=== PATIENT | female | born 1965 | race Two or more races ===

== ENCOUNTER 2016-10-09 11:52 | Emergency (ER) | payer OTHER ==
[2016-10-09] MEDS ORDERED: ACETAMINOPHEN 325 MG TAB PO ONE (12:41)
--- NOTE | 2016-10-09 12:46 | EDPHY ---
H & P Stated Complaint: LARYNGITIS, SORE THROAT Time Seen by Provider: 10/09/16 12:10 HPI/ROS: CHIEF COMPLAINT: Sore throat and upper chest burning HISTORY OF PRESENT ILLNESS: This is a healthy immunocompetent 51-year-old female who presents with almost 3 days of high substernal chest burning, sore throat, laryngitis, headache, myalgias, fever, cough, and facial pain. Her cough has been productive. She has also had sinus drainage down the back of her throat. She did have a flu shot this year. She does not feel short of breath. REVIEW OF SYSTEMS: A ten point review of systems was performed and is negative with the exception of the items mentioned in the HPI. Source: Patient Exam Limitations: No limitations - Personal History LMP (Females 10-55): 8-14 Days Ago Current Tetanus Diphtheria and Acellular Pertussis (TDAP): Yes Tetanus Vaccine Date: within 10 yrs - Medical/Surgical History Hx Asthma: No Hx Chronic Respiratory Disease: No Hx Diabetes: No Hx Cardiac Disease: No Hx Renal Disease: No Hx Cirrhosis: No Hx Alcoholism: No Hx HIV/AIDS: No Hx Splenectomy or Spleen Trauma: No Other PMH: Depression on antidepressants - Social History Smoking Status: Former smoker Additional Social History: No tobacco use. She works with - Physical Exam Exam: General Appearance: Alert. Vital signs reviewed. Blood pressure 144/82. Heart rate 103 at triage. Eyes: Pupils equal and round, no conjunctival injection, no discharge. Anicteric. ENT, Mouth: Mucous membranes are moist, no oropharyngeal erythema or edema. Neck: Mild anterior cervical lymphadenopathy. No meningeal signs. Respiratory: Lungs are clear to auscultation; no wheezes, rales, or rhonchi. Cardiovascular: Regular rate and rhythm; no murmur, rub, or gallop. Not tachycardic at the time of my evaluation. Gastrointestinal: Abdomen is soft and nontender, no masses or organomegaly, bowel sounds normal. Skin: Warm and sweaty, no rashes on exposed skin, normal color. Back: Nontender to palpation over the thoracolumbar spine. No CVAT. Extremities: No lower extremity edema, no calf tenderness or swelling. Neurological: Alert and oriented. Moving all four extremities easily and equally. Psychiatric: Normal affect. Constitutional: Initial Vital Signs Temperature (C) 37.6 C 10/09/16 11:53 Heart Rate 103 H 10/09/16 11:53 Respiratory Rate 16 10/09/16 11:53 Blood Pressure 144/82 H 10/09/16 11:53 O2 Sat (%) 94 10/09/16 11:53 O2 Delivery Mode Room Air Allergies/Adverse Reactions: No Known Allergies Allergy (Unverified 10/09/16 11:57) Home Medications: Medication Instructions Recorded Adderall 30 mg Tablet 10/09/16 Wellbutrin 10/09/16 Zoloft 10/09/16 Medical Decision Making - Diagnostics Imaging Results: Imaging Impressions Chest X-Ray 10/09/16 12:41 Impression: Possible airways disease. Otherwise negative. ED Course/Re-evaluation: Chest x-ray does not show an infiltrate. Influenza testing is positive for influenza B. This was relayed to the patient. She was offered Tamiflu but has decided to forego this medication. We discussed danger signs that should prompt her to be re-evaluated. We discussed symptomatic treatment. Differential Diagnosis: I considered a differential diagnosis including but not limited to pneumonia, urinary tract infection, viral syndrome, and influenza. - Data Points Laboratory Results: 10/09/16 12:45 Influenza A,B Rapid POSITIVE FOR FLU B H (NEGATIVE) Medications Given: Discontinued Medications Acetaminophen (Tylenol) 650 mg PO EDNOW ONE Stop: 10/09/16 12:42 Last Admin: 10/09/16 12:51 Dose: 650 mg Departure - Departure Disposition: Home, Routine, Self-Care Clinical Impression: Influenza B Condition: Good Instructions: Influenza (ED) Additional Instructions: Adult Pain & Fever Control: We recommend Acetaminophen (Tylenol) and Ibuprofen (Motrin,Advil) for pain and fever control. When fever is high or pain severe, both drugs can be used at the same time, but at different intervals. Please note the time differences. Your dose is: Acetaminophen [650]mg every 4 to 6 hours Ibuprofen [400]mg every [6-8] hours with food OR Note: do not take Acetaminophen with Hydrocodone (Vicodin, Lortab) or Oycodone (Percocet). These medications also contain Acetaminophen. No more than 3000mg of Acetaminophen should be taken in 24 hours (for an adult). Follow up with Dr. Lilly as needed. You should remain at home until you have been without fever for 24 hours. Referrals: MD TOSHA [Other] - As per Instructions
[2016-10-09 13:32] VITALS: TEMP 98.6
[2016-10-09 16:30] VITALS: BP 112/78; PULSE 82; RESP 18; O2SAT 95
== END 2016-10-09 14:11 | disposition home or self-care (01) ==
LOC: CED 11:52
DX: J10.1 Influenza due to other identified influenza virus with other respiratory manifestations (principal); Z87.891 Personal history of nicotine dependence
CPT/HCPCS: 71020-PO; 87400-PO